=== PATIENT | female | born 1960 | race Caucasian/White ===

== ENCOUNTER 2017-06-26 10:09 | Emergency (ER) | payer MEDICAID, OTHER ==
[~2017-06-26] VITALS: Ht 161.3 cm; Wt 79.5 kg
[2017-06-26] MEDS ORDERED: ipratropium/albuterol 3ml nebule NEB ONE (10:30)
[2017-06-26] MEDS ORDERED: GUAI10SY2 PO (11:11)
[2017-06-26] MEDS ORDERED: TAM75C PO (11:11)
[2017-06-26] MEDS ORDERED: acetaminophen 325mg tablet PO ONE (11:15)
[2017-06-26 11:21] VITALS: BP 118/56
== END 2017-06-26 11:40 | disposition home or self-care (01) ==
LOC: ER 10:09
DX: J02.9 Acute pharyngitis, unspecified (principal); R05 Cough; R06.02 Shortness of breath; Z88.8 Allergy status to other drugs, medicaments and biological substances; Z79.899 Other long term (current) drug therapy
CPT/HCPCS: 71045; 94640; 94760; 99283

== ENCOUNTER 2017-08-24 12:44 | Outpatient (CLI) | payer MEDICAID ==
[~2017-08-24] VITALS: Ht 161.3 cm; Wt 79.4 kg
[2017-08-24] MEDS ORDERED: albuterol 2.5 MG/3 ML nebule ONE (13:18)
[2017-08-24] MEDS ORDERED: albuterol 2.5 MG/3 ML nebule NEB ONE (14:10)
== END 2017-08-24 23:59 | disposition home or self-care (01) ==
LOC: RT 12:44
PROVIDERS: ATTEND Family Medicine
DX: R06.02 Shortness of breath (principal); R06.09 Other forms of dyspnea; F17.200 Nicotine dependence, unspecified, uncomplicated
CPT/HCPCS: 94060; 94640; 94760

== ENCOUNTER 2022-07-28 20:24 | Emergency (ER) | payer MEDICAID ==
[~2022-07-28] VITALS: Ht 157.5 cm; Wt 76.4 kg
[2022-07-28 21:17] VITALS: BP 128/61
== END 2022-07-29 01:28 | disposition left against medical advice (07) ==
LOC: ER 20:24
DX: R07.89 Other chest pain (principal); Z53.21 Procedure and treatment not carried out due to patient leaving prior to being seen by health care provider
CPT/HCPCS: 99281